=== PATIENT | male | born 1970 | race Caucasian/White ===

== ENCOUNTER 2023-07-29 13:06 | Observation (INO) ==
[2023-07-29] MEDS ORDERED: Aspirin EC 81 mg TAB.EC (enteric coated) PO ONE (16:21)
[2023-07-29 18:36] LABS: ABS Eosinophils 0.2 10^3/uL (0.0-0.5); ABS Lymphocytes 1.8 10^3/uL (1.0-4.8); ABS Monocytes 0.9 10^3/uL (0.0-1.1); ABS Neutrophils 7.6 10^3/uL (1.5-7.6); Eosinophil % 1.7 %; Hemoglobin 13.3 g/dL (13.2-16.3); Lymphocyte % 17.3 %; Mean Corpuscular Hemoglobin 30.3 pg (27-33); Mean Corpuscular Hgb Conc 35.1 g/dL (31-36); Mean Corpuscular Volume 86.3 fL (80-97); Mean Platelet Volume 7.2 fL (7.5-11.2); Platelet Count 355 10^3/uL (150-450); Red Cell Distribution Width 13.4 % (12-17); White Blood Count 10.5 10^3/uL (3.6-10.2)
[2023-07-29 18:52] LABS: Activated Partial Thrombo Time 34.5 seconds (26.0-38.0); INR 1.16 (0.83-1.13)
[2023-07-29 18:56] LABS: Albumin 3.6 g/dL (3.2-5.2); Albumin/Globulin Ratio 1.1 (1-3); Creatinine, Serum 1.02 mg/dL (0.67-1.17); Globulin 3.4 g/dL (2-4); HDL Cholesterol 50.5 mg/dL; Potassium 3.4 mmol/L (3.5-5.0); Total Bilirubin 0.4 mg/dL (0.2-1.0); eGFR CKD-EPI 87.3 (>60)
[2023-07-29] MEDS ORDERED: Iohexol 350 (CONTRAST) 500 ML MDV IV ONE (19:11)
[2023-07-29] MEDS ORDERED: Potassium Chlor 20 meq TAB.ER PO ONE (19:46)
[2023-07-29 20:10] LABS: Urine Benzodiazepine Screen None Detected (None Detect); Urine Cannabinoids Screen None Detected (None Detect); Urine Opiates Screen None Detected (None Detect)
[2023-07-29] MEDS: Enoxaparin 40 MG/0.4 ML SYR SUBCUT SCH (22:20)
[2023-07-30] MEDS: Aspirin EC 81 mg TAB.EC (enteric coated) PO SCH (08:37)
[2023-07-30 10:33] LABS: ABS Basophils 0.1 10^3/uL (0.0-0.1); ABS Eosinophils 0.2 10^3/uL (0.0-0.5); ABS Lymphocytes 1.8 10^3/uL (1.0-4.8); ABS Monocytes 0.9 10^3/uL (0.0-1.1); ABS Neutrophils 5.7 10^3/uL (1.5-7.6); ABS Nucleated RBC 0.01 10^3/ul; Eosinophil % 2.5 %; Hemoglobin 12.7 g/dL (13.2-16.3); Lymphocyte % 20.7 %; Mean Corpuscular Hemoglobin 29.6 pg (27-33); Mean Corpuscular Hgb Conc 34.3 g/dL (31-36); Mean Corpuscular Volume 86.1 fL (80-97); Mean Platelet Volume 7.3 fL (7.5-11.2); Nucleated Red Blood Cells % 0.1 %/100WBC (0.0-0.8); Platelet Count 384 10^3/uL (150-450); Red Cell Distribution Width 13.3 % (12-17); White Blood Count 8.7 10^3/uL (3.6-10.2)
[2023-07-30 10:54] LABS: Calcium 8.8 mg/dL (8.6-10.3); Creatinine, Serum 0.82 mg/dL (0.67-1.17); Magnesium 1.8 mg/dL (1.9-2.7); Potassium 3.4 mmol/L (3.5-5.0); eGFR CKD-EPI 104.4 (>60)
[2023-07-30] MEDS: Magnesium Sulfate IV 1GM/100ML 1 GM/100 ML BAG IV SCH ×2 (15:19→16:01)
[2023-07-30] MEDS ORDERED: Benzocaine/Menthol LOZ PO ONE (19:48)
[2023-07-30] MEDS: Enoxaparin 40 MG/0.4 ML SYR SUBCUT SCH (20:05)
[2023-07-31 07:26] LABS: AST 32 U/L (13-39); Potassium 4.2 mmol/L (3.5-5.0)
[2023-07-31 07:27] LABS: ALT 21 U/L (7-52); Albumin 3.6 g/dL (3.2-5.2); Albumin/Globulin Ratio 1.1 (1-3); Alkaline Phosphatase 69 U/L (35-149); Anion Gap 11 mmol/L (2-16); Blood Urea Nitrogen 17 mg/dL (6-24); CO2 Carbon Dioxide 20 mmol/L (22-32); Calcium 8.8 mg/dL (8.6-10.3); Chloride 106 mmol/L (101-111); Globulin 3.4 g/dL (2-4); Glucose 91 mg/dL (70-100); Sodium 137 mmol/L (135-145); Total Bilirubin 0.3 mg/dL (0.2-1.0); eGFR CKD-EPI 105.2 (>60)
[2023-07-31] MEDS: Aspirin EC 81 mg TAB.EC (enteric coated) PO SCH (08:37)
[2023-07-31 14:00] VITALS: BP 155/98
== END 2023-07-31 16:00 | disposition home or self-care (01) ==
LOC: EDHOLD 13:06 → ED 13:06 → SUATTDRO 17:17 → MEDTELE 20:13
PROVIDERS: ADMIT Internal Medicine; ATTEND Student in an Organized Health Care Education/Training Program